=== PATIENT | female | born 1960 | race Caucasian/White ===

== ENCOUNTER 2017-10-16 14:33 | Emergency (ER) | payer OTHER ==
[~2017-10-16] VITALS: Ht 167.6 cm; Wt 68.0 kg
[~2017-10-16 14:33] MED LIST: ALBU90I INH; ALBU90OI; AMOX500 PO; Bactrim 400-801 EACH PO; Bactrim Ds Tab1 EACH PO; CARI350 PO; CEFA250 PO; CEPH500 PO; CHLO25 PO; CLON.1 PO; CLON.5 PO; CLON1 PO; CYCL10; Cipro250 MG PO; Ciprodex Otic7.5 ML RIGHTEAR; Cleocin HCl300 MG PO; DOXY100 PO; HORMONES; HYDACE5; HYDACE5 PO; HYDPAM50 PO; IBUP200; Keflex500 MG PO; LORA10ER PO; MEDR10; MEDR10 PO; MEDR5 PO; NAPR550 PO; OXYACE10 PO; OXYACE5T; OXYACE5T PO; OXYC5 PO; OXYCONTIN 15 MG PO; PRED20 PO; PROM25 PO; Permethrin60 GM TOP; RXCODACET PO; RXNAPNA550 PO; SERT25; SULTRIDS PO; SULTRISS; TRAM50 PO; Tylenol325 MG PO; [UNRECOGNIZED DRUG - REMARK]
[2017-10-16] MEDS ORDERED: Bactrim Ds Tab1 EACH PO (16:22)
[2018-01-13] MEDS ORDERED: OLAN10 PO (16:22)
[2018-05-01] MEDS ORDERED: Vibramycin100 MG PO (07:40)
[2018-05-01] MEDS ORDERED: Prednisone20 MG PO (07:40)
== END 2017-10-16 17:13 | disposition home or self-care (01) ==
LOC: ER 14:33
DX: M54.5 Low back pain (principal); G89.29 Other chronic pain; L08.9 Local infection of the skin and subcutaneous tissue, unspecified; Z88.8 Allergy status to other drugs, medicaments and biological substances; Z79.899 Other long term (current) drug therapy; Z79.2 Long term (current) use of antibiotics; F17.200 Nicotine dependence, unspecified, uncomplicated; F41.9 Anxiety disorder, unspecified
CPT/HCPCS: 72100; 96372; 99283; J1885

== ENCOUNTER 2018-03-11 12:38 | Emergency (ER) | payer OTHER ==
[~2018-03-11] VITALS: Ht 167.6 cm; Wt 72.6 kg
[~2018-03-11 12:38] MED LIST changes: +OLAN10 PO
[2018-03-11] MEDS ORDERED: OLAN5 PO (13:06)
[2018-03-11] MEDS ORDERED: Zithromax250 MG PO (15:25)
== END 2018-03-11 15:58 | disposition home or self-care (01) ==
LOC: ER 12:38
DX: J18.9 Pneumonia, unspecified organism (principal); F41.9 Anxiety disorder, unspecified; F17.200 Nicotine dependence, unspecified, uncomplicated; Z88.6 Allergy status to analgesic agent; Z88.8 Allergy status to other drugs, medicaments and biological substances; Z79.899 Other long term (current) drug therapy
CPT/HCPCS: 71046; 99283

== ENCOUNTER 2020-10-26 15:05 | Emergency (ER) | payer SELFPAY ==
[~2020-10-26] VITALS: Ht 167.6 cm; Wt 77.1 kg
[~2020-10-26 15:05] MED LIST changes: +OLAN5 PO; +Prednisone20 MG PO; +Vibramycin100 MG PO; +Zithromax250 MG PO
[2020-10-26 15:47] LABS: BASOPHILS ABSOLUTE AUTO 0.04 K/mm3 (0.00-0.23); BASOPHILS PERCENT AUTO 1 % (0-2); EOSINOPHILS ABSOLUTE AUTO 0.17 K/mm3 (0.00-0.68); EOSINOPHILS PERCENT AUTO 3 % (0-6); Hematocrit 46.9 % (33.0-51.0); Hemoglobin 15.1 g/dL (11.5-16.0); IMMATURE GRAN ABSOLUTE AUTO 0.03 K/mm3 (0.00-0.10); IMMATURE GRAN PERCENT AUTO 1 % (0-1); LYMPHOCYTES ABSOLUTE AUTO 1.37 K/mm3 (0.84-5.20); LYMPHOCYTES PERCENT AUTO 21 % (21-46); MONOCYTES ABSOLUTE AUTO 0.44 K/mm3 (0.16-1.47); MONOCYTES PERCENT AUTO 7 % (4-13); Mean Corpuscular HGB 30.2 pg (26.0-34.0); Mean Corpuscular HGB Conc 32.2 g/dL (31.5-36.5); Mean Corpuscular Volume 94 fL (80-100); Mean Platelet Volume 9.8 fL (9.1-12.4); NEUTROPHILS ABSOLUTE AUTO 4.55 K/mm3 (1.96-9.15); NEUTROPHILS PERCENT AUTO 69 % (41-73); Platelet Count 272 K/mm3 (150-400); RDW Coefficient Variation 12.9 % (11.7-14.2); RDW Standard Deviation 43.9 fL (35.1-46.3)
[2020-10-26 16:08] LABS: Alanine Aminotransfer (ALT/SGP 52 U/L (12-78); Albumin, Blood 3.4 g/dL (3.4-5.0); Albumin/Globulin Ratio 0.8 (0.8-1.8); Alk Phos 162 U/L (50-136); Anion Gap 6 mmol/L (6-16); Aspartate Aminotrans (AST/SGOT 35 U/L (12-37); Bilirubin, Total 0.4 mg/dL (0.1-1.0); Blood Urea Nitrogen 11 mg/dL (8-24); Bun/Creatinine Ratio 20.1 (12.0-20.0); CO2, Blood 29 mmol/L (21-32); Chloride, Blood 106 mmol/L (98-108); Creatinine, Blood 0.55 mg/dL (0.40-1.00); Globulin, Blood 4.1 g/dL (2.2-4.0); Glomerular Filtration Rate >60 (60-); Glucose, Blood 89 mg/dL (70-99); Potassium, Blood 3.6 mmol/L (3.5-5.5); Sodium, Blood 141 mmol/L (136-145); Total Protein, Blood 7.5 g/dL (6.4-8.2); Troponin I <0.015 ng/mL (0.000-0.040)
[2020-10-26 16:43] LABS: Source, Urine Clean Catch
[2020-10-26 17:02] LABS: Appearance, Urine Clear (Clear); Bilirubin, Urine Neg (Neg); Blood, Urine Neg (Neg); Color, Urine Yellow (P-Yellow); Glucose Qualitative, Urine Neg (Neg); Ketones, Urine Neg (Neg); Leukocyte Esterase, Urine 2+ (Neg); Nitrite, Urine Neg (Neg); Protein, Urine Neg (Neg); Urobilinogen, Urine NORM (Normal); pH, Urine 6.5 (5.0-8.0)
[2020-10-26 17:09] LABS: Bacteria Few /hpf; Red Blood Cells, Urine 0-2 /hpf (0-2); Squamous Epithelial Cells Few /hpf (Few)
[2020-10-26] MEDS ORDERED: CYCL10 PO (18:31)
== END 2020-10-26 18:51 | disposition home or self-care (01) ==
LOC: ER 15:05
PROVIDERS: Physician Assistant
DX: S29.012A Strain of muscle and tendon of back wall of thorax, initial encounter (principal); R10.31 Right lower quadrant pain; F17.200 Nicotine dependence, unspecified, uncomplicated; Z88.6 Allergy status to analgesic agent; X58.XXXA Exposure to other specified factors, initial encounter
CPT/HCPCS: 36415; 74177; 76705; 80053; 81001; 81025; 83690; 84484; 85025; 87086; 93005; 93010; 96374; 96375; 99284-25; J2270; J2405; Q9967

== ENCOUNTER 2020-11-01 03:06 | Emergency (ER) | payer SELFPAY ==
[~2020-11-01] VITALS: Ht 167.6 cm; Wt 81.7 kg
[~2020-11-01 03:06] MED LIST changes: +CYCL10 PO
== END 2020-11-01 04:13 | disposition home or self-care (01) ==
LOC: ER 03:06
DX: Z00.00 Encounter for general adult medical examination without abnormal findings (principal); F17.200 Nicotine dependence, unspecified, uncomplicated; Z88.6 Allergy status to analgesic agent; Z88.8 Allergy status to other drugs, medicaments and biological substances; Z79.899 Other long term (current) drug therapy
CPT/HCPCS: 99283

== ENCOUNTER 2021-02-25 12:20 | Emergency (ER) | payer SELFPAY ==
[~2021-02-25] VITALS: Ht 167.6 cm; Wt 90.5 kg
== END 2021-02-25 13:45 | disposition home or self-care (01) ==
LOC: ER 12:20
DX: S50.01XA Contusion of right elbow, initial encounter (principal); F15.10 Other stimulant abuse, uncomplicated; F17.200 Nicotine dependence, unspecified, uncomplicated; Z88.6 Allergy status to analgesic agent; Z88.8 Allergy status to other drugs, medicaments and biological substances; W22.8XXA Striking against or struck by other objects, initial encounter
CPT/HCPCS: 36415; 73070; 99284-25